=== PATIENT | female | born 1930 | race Caucasian/White ===

== ENCOUNTER 2017-08-23 11:32 | Inpatient (IN) ==
[2017-08-23] MEDS ORDERED: Furosemide 40 MG/4 ML VIAL IVP ONE (11:43)
[2017-08-23] MEDS ORDERED: Nitroglycerin 1 INCH/GM PACKET TP ONE (11:43)
--- NOTE | 2017-08-23 11:47 | Emergency Department Note ---
Disposition Clinical Impression: Congestive heart failure Qualifiers: Congestive heart failure type: systolic Congestive heart failure chronicity: acute Qualified Code(s): I50.21 - Acute systolic (congestive) heart failure Community acquired pneumonia Qualifiers: Laterality: left Lung location: lower lobe of lung Qualified Code(s): J18.1 - Lobar pneumonia, unspecified organism Disposition: Admitted As Inpatient Condition: Good Referrals: Casimiro Hester DO [Primary Care Provider] - Forms: ED Satisfaction Letter Time of Disposition: 14:06 SOB HPI - General Chief Complaint: ED Shortness of Breath/Dyspnea Stated Complaint: SOB/Bilat wheezing Time Seen by Provider: 08/23/17 11:40 Source: patient, EMS Mode of arrival: ambulatory Limitations: no limitations Nursing Notes Reviewed: Yes Vital Signs Reviewed: Yes - History of Present Illness 87-year-old white female states she been more short of breath and usual for the last week. She states she short of breath whether she sitting or lying down. She denies chest pain. She denies cough. No fever. She states she has a history of COPD and congestive heart failure. She is not on home oxygen. Her O2 saturation was 80% in the field. She was given a DuoNeb and 125 mg of Solu- Medrol in route. She denies leg edema. Pt Subjective Complaint: shortness of breath Onset (ago): week(s) (1) Context: other (History of CHF and COPD) Severity: moderate Consistency/Duration: constant Improves with: nothing Worsens with: exertion Known history of: COPD, congestive heart failure Associated symptoms: Reports: denies other symptoms Treatment prior to arrival: oxygen, bronchodilator, other (Solu-Medrol) Cough present: No - Related Data Home oxygen amount: none Home Medications Medication Instructions Recorded Confirmed Aspirin Enteric Coated [Aspirin EC] 81 mg PO DAILY 04/14/15 08/23/17 Furosemide [Lasix] 40 mg PO DAILY 04/14/15 08/23/17 Losartan [Cozaar] 25 mg PO DAILY 04/14/15 08/23/17 Mexiletine [Mexitil] 300 mg PO BID 04/14/15 08/23/17 Oxazepam [Serax] 10 mg PO 1-3XD 04/14/15 08/23/17 Paroxetine [Paxil] 20 mg PO DAILY 04/14/15 08/23/17 Rosuvastatin [Crestor] 20 mg PO HS 04/14/15 08/23/17 Cyanocobalamin (Vitamin B-12) 1,000 mcg PO DAILY 08/23/17 08/23/17 [Vitamin B12] Dexlansoprazole [Dexilant] 60 mg PO DAILY 08/23/17 08/23/17 Ferrous Sulfate [Slow Release Iron] 143 mg PO DAILY 08/23/17 08/23/17 Previous Rx's Medication Instructions Recorded Ranitidine Oral Soln [Ranitidine] 150 mg PO BID #60 mls 04/27/15 Allergies Allergy/AdvReac Type Severity Reaction Status Date / Time Penicillins Allergy Rash Verified 04/14/15 07:51 codeine AdvReac Vomiting Verified 08/23/17 11:34 All systems ED: reviewed and negative except as stated. Constitutional: Denies: fever, chills ENT ED: Denies: ear pain, throat pain Cardiovascular: Denies: chest pain, palpitations Respiratory: Reports: dyspnea, wheezes. 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 Absent: scleral icterus, conjunctival injection - ENT ENT exam: normal oropharynx, mucous membranes moist - Neck Neck exam: Present: normal inspection, full ROM, trachea midline, other ( Positive JVD). Absent: lymphadenopathy - Chest Chest inspection: Present: symmetric chest wall rise - Respiratory Respiratory exam: Present: respiratory distress (Mildly dyspneic), other ( Decreased breath sounds in both bases with bibasilar rales.). Absent: wheezes, stridor, accessory muscle use, prolonged expiratory phase - Cardiovascular Cardiovascular exam: Present: normal rhythm, tachycardia, systolic murmur, diastolic murmur (2/6 systolic/diastolic murmur left sternal border), JVD - Abdominal Exam Abdominal exam: Present: soft, Non-Tender, normal bowel sounds. Absent: organomegaly, mass - Extremities Exam Extremities exam: Present: normal inspection, full ROM, normal capillary refill. Absent: pedal edema, calf tenderness - Neurological Exam Neurological exam: Present: alert, oriented X3. Absent: motor sensory deficit - Psychiatric Psychiatric exam: Present: normal affect, normal mood - Skin Skin exam: Present: diaphoresis. Absent: cyanosis, erythema Course Vital Signs Temperature 98.1 F 08/23/17 11:35 Pulse Rate 122 08/23/17 11:35 Respiratory Rate 22 08/23/17 11:35 Blood Pressure 133/95 08/23/17 11:35 O2 Sat by Pulse Oximetry 96 08/23/17 11:35 Temperature 98.1 F 08/23/17 11:35 Pulse Rate 103 08/23/17 13:26 Respiratory Rate 20 08/23/17 13:26 Blood Pressure 121/83 08/23/17 13:26 O2 Sat by Pulse Oximetry 91 08/23/17 13:26 Oxygen Delivery Oxygen Delivery Nasal Cannula Shortness of Breath/Dyspnea - [facility] Narrative Medical decision making narrative: Clinically I believe she has congestive heart failure. Her exam was consistent with heart failure. Her BNP was elevated. She improved dramatically with IV Lasix and topical nitrates. Her heart rate is now in the 90s. Her O2 saturations in the low 90s on 2 L of oxygen. She clinically feels much better. The chest x-ray showed a questionable pneumonia. I have obtained cultures and covered her with antibiotics. Her lactic acid was mildly elevated, I do not think this represents sepsis and in light of her congestive heart barrier which is improved with diuresis I do not think that it is indicated to give her a fluid bolus to cover for sepsis. I have discussed the case with Dr. Londono. She will be admitted to a observation telemetry bed for further evaluation treatment. - Differential Diagnosis Likely: acute exacerbation of chronic obstructive airways disease, congestive heart failure, pneumonia, pulmonary embolism, pneumothorax, arrhythmia - Medical Records Medical records reviewed: Yes I reviewed the patient's medical records. - Lab Data Lab results reviewed: Yes I reviewed the patient's lab results. Result diagrams: 08/23/17 11:58 08/23/17 11:58 Lab Results 08/23/17 08/23/17 08/23/17 Range/Units 11:58 11:58 11:58 WBC 9.2 (4.3-11.1) K/mcL RBC 4.00 (3.82-4.97) M/mcL Hgb 13.7 (11.5-15.4) g/dL Hct 39.1 (35.3-44.9) % MCV 97.8 (83.0-100.0) fL MCH 34.3 H (28.0-33.3) pg MCHC 35.0 (31.6-35.5) g/dL RDW 15.8 H (11.5-14.5) % Plt Count 318 (140-400) K/mcL MPV 11.3 (9.4-12.4) fL Immature Gran % 0.3 (0-4) % Seg Neutrophils % 75.1 % Lymphocytes % 14.7 % Monocytes % 7.1 % Eosinophils % 1.6 % Basophils % 1.2 % Neutrophils # 6.9 (1.6-8.9) K/mcL Lymphocytes # 1.4 (0.6-4.6) K/mcL Monocytes # 0.7 (0.0-1.3) K/mcL Eosinophils # 0.2 (0.0-0.6) K/mcL Basophils # 0.1 (0.0-0.2) K/mcL PT 12.5 H (9.4-12.1) Seconds INR 1.2 Sodium 137 (136-145) mEq/L Potassium 3.5 (3.5-4.5) mEq/L Chloride 101 (98-109) mEq/L Carbon Dioxide 24 (19-29) mEq/L BUN 25 H (7-20) mg/dL Creatinine 1.29 H (0.57-1.11) mg/dL Est GFR ( Amer) 47 L (> 60) Est GFR (Non-Af Amer) 39 L (> 60) BUN/Creatinine Ratio 19 (6-26) Glucose 174 H (70-99) mg/dL Calculated Osmolality 293 (280-300) Lactic Acid (0.5-2.2) mmol/L Calcium 9.3 (8.6-10.8) mg/dL Total Bilirubin 0.5 (0.2-1.2) mg/dL AST 28 (5-34) Units/L ALT 16 (0-55) Units/L Alkaline Phosphatase 81 (38-126) Units/L Troponin I (0-0.03) ng/mL B-Natriuretic Peptide (0-100) pg/mL Serum Total Protein 7.2 (6.0-8.3) g/dL Albumin 3.8 (3.5-5.0) g/dL Globulin 3.4 (2.4-3.5) g/dL Albumin/Globulin Ratio 1.1 (1.1-2.2) 08/23/17 08/23/17 08/23/17 Range/Units 11:58 11:58 13:08 WBC (4.3-11.1) K/mcL RBC (3.82-4.97) M/mcL Hgb (11.5-15.4) g/dL Hct (35.3-44.9) % MCV (83.0-100.0) fL MCH (28.0-33.3) pg MCHC (31.6-35.5) g/dL RDW (11.5-14.5) % Plt Count (140-400) K/mcL MPV (9.4-12.4) fL Immature Gran % (0-4) % Seg Neutrophils % % Lymphocytes % % Monocytes % % Eosinophils % % Basophils % % Neutrophils # (1.6-8.9) K/mcL Lymphocytes # (0.6-4.6) K/mcL Monocytes # (0.0-1.3) K/mcL Eosinophils # (0.0-0.6) K/mcL Basophils # (0.0-0.2) K/mcL PT (9.4-12.1) Seconds INR Sodium (136-145) mEq/L Potassium (3.5-4.5) mEq/L Chloride (98-109) mEq/L Carbon Dioxide (19-29) mEq/L BUN (7-20) mg/dL Creatinine (0.57-1.11) mg/dL Est GFR ( Amer) (> 60) Est GFR (Non-Af Amer) (> 60) BUN/Creatinine Ratio (6-26) Glucose (70-99) mg/dL Calculated Osmolality (280-300) Lactic Acid 3.2 H (0.5-2.2) mmol/L Calcium (8.6-10.8) mg/dL Total Bilirubin (0.2-1.2) mg/dL AST (5-34) Units/L ALT (0-55) Units/L Alkaline Phosphatase (38-126) Units/L Troponin I 0.02 (0-0.03) ng/mL B-Natriuretic Peptide 917 H (0-100) pg/mL Serum Total Protein (6.0-8.3) g/dL Albumin (3.5-5.0) g/dL Globulin (2.4-3.5) g/dL Albumin/Globulin Ratio (1.1-2.2) - Radiology Data Radiology results reviewed: Yes I reviewed the patient's radiology results. Impressions Chest X-Ray 08/23/17 11:43 IMPRESSION: Right basilar airspace disease, suspicious for pneumonia and small right pleural effusion. D/ / Jasen Mendez MD / Jasen Mendez MD Interpreting Provider: Jasen Mendez MD - EKG Data EKG attestation: Yes I reviewed and interpreted this EKG. EKG results narrative: Sinus tachycardia, rate 120, interventricular conduction delay, right axis deviation. Rhythm strip shows sinus tachycardia with rate of 120, OK interval 130 ms, QRS 133 ms with no other ectopy as interpreted by me.
[2017-08-23 12:05] LABS: Basophils # 0.1 K/mcL (0.0-0.2); Basophils % 1.2 %; Eosinophils # 0.2 K/mcL (0.0-0.6); Eosinophils % 1.6 %; Hematocrit 39.1 % (35.3-44.9); Hemoglobin 13.7 g/dL (11.5-15.4); Immature Granulocytes % 0.3 % (0-4); Lymphocytes # 1.4 K/mcL (0.6-4.6); Lymphocytes % 14.7 %; Mean Corpuscular Hemoglobin 34.3 pg (28.0-33.3); Mean Corpuscular Volume 97.8 fL (83.0-100.0); Mean Platelet Volume 11.3 fL (9.4-12.4); Monocytes # 0.7 K/mcL (0.0-1.3); Monocytes % 7.1 %; Neutrophils # 6.9 K/mcL (1.6-8.9); Platelet Count 318 K/mcL (140-400); Red Cell Distribution Width 15.8 % (11.5-14.5); Segmented Neutrophils % 75.1 %
[2017-08-23 12:13] LABS: INR 1.2; Prothrombin Time 12.5 Seconds (9.4-12.1)
[2017-08-23 12:24] LABS: Albumin 3.8 g/dL (3.5-5.0); Albumin/Globulin Ratio 1.1 (1.1-2.2); Bilirubin,Total 0.5 mg/dL (0.2-1.2); Calcium 9.3 mg/dL (8.6-10.8); Globulin 3.4 g/dL (2.4-3.5); Potassium 3.5 mEq/L (3.5-4.5); Total Protein 7.2 g/dL (6.0-8.3)
[2017-08-23] MEDS ORDERED: Azithromycin 500 MG in D5% in Water 250 ML IVPB ONE (12:36)
[2017-08-23] MEDS ORDERED: Ondansetron 4 MG/2 ML VIAL IVP ONE (12:51)
[2017-08-23] MEDS ORDERED: Naloxone 0.4 MG/ML INJ IVP PRN (14:43)
[2017-08-23] MEDS: *HR* Promethazine 25 MG/ML VIAL IVP PRN (16:26)
[2017-08-23] MEDS ORDERED: Furosemide 40 MG/4 ML VIAL IVP SCH (17:00)
[2017-08-23] MEDS: Acetaminophen 325 MG TABLET PO PRN (19:00)
--- NOTE | 2017-08-23 20:26 | Electrocardiograph Report ---
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
[2017-08-23] MEDS: *HR* HYDROcodone/Acet 5/325 mg TABLET PO PRN (21:02)
[2017-08-23] MEDS: MEXILETINE 150 MG PO SCH (23:14)
[2017-08-24] MEDS ORDERED: Furosemide 40 MG/4 ML VIAL IVP SCH (08:00)
[2017-08-24] MEDS: *HR* HYDROcodone/Acet 5/325 mg TABLET PO PRN ×3 (08:33→19:51)
[2017-08-24] MEDS: Famotidine 20 MG TABLET PO SCH ×2 (08:33→13:03)
[2017-08-24] MEDS: Aspirin Enteric Coated 81 MG Tablet PO SCH (08:34)
[2017-08-24] MEDS: Cyanocobalamin (B-12) 1,000 MCG TABLET PO SCH ×2 (08:34→13:04)
[2017-08-24] MEDS: MEXILETINE 150 MG PO SCH ×2 (08:35→09:06)
[2017-08-24] MEDS: Ondansetron 4 MG/2 ML VIAL IVP PRN ×2 (09:06→15:56)
[2017-08-24] MEDS ORDERED: 0.45 % Sodium Chloride w/KCl 20 MEQ/1,000 ML MLS IVC SCH (12:15)
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
[2017-08-24] MEDS: Isosorbide MONOnitrate (24 HR) 30 MG TAB.ER.24H PO SCH (13:11)
[2017-08-24] MEDS: Azithromycin 500 MG in D5% in Water 250 ML IVPB SCH (19:15)
[2017-08-25] MEDS: *HR* Enoxaparin 30 MG/0.3 ML SYRINGE SQ SCH (06:19)
[2017-08-25 08:24] LABS: Basophils # 0.1 K/mcL (0.0-0.2); Basophils % 0.7 %; Eosinophils # 0.1 K/mcL (0.0-0.6); Eosinophils % 0.9 %; Hemoglobin 11.9 g/dL (11.5-15.4); Immature Granulocytes % 0.4 % (0-4); Lymphocytes # 2.2 K/mcL (0.6-4.6); Lymphocytes % 21.8 %; Mean Platelet Volume 12.4 fL (9.4-12.4); Monocytes # 0.7 K/mcL (0.0-1.3); Monocytes % 6.9 %; Neutrophils # 6.9 K/mcL (1.6-8.9); Platelet Count 249 K/mcL (140-400); Red Cell Distribution Width 16.1 % (11.5-14.5); Segmented Neutrophils % 69.3 %
[2017-08-25 08:34] LABS: Calcium 8.8 mg/dL (8.6-10.8); Magnesium 2.5 mg/dL (1.6-2.6); Potassium 4.5 mEq/L (3.5-4.5)
[2017-08-25 08:58] LABS: Thyroid Stimulating Hormone 1.94 mcIU/mL (0.350-4.840)
[2017-08-25] MEDS: Aspirin Enteric Coated 81 MG Tablet PO SCH (09:34)
[2017-08-25] MEDS: MEXILETINE 150 MG PO SCH ×3 (09:35→20:49)
[2017-08-25] MEDS: Isosorbide MONOnitrate (24 HR) 30 MG TAB.ER.24H PO SCH (09:38)
[2017-08-25] MEDS: *HR* HYDROcodone/Acet 5/325 mg TABLET PO PRN ×2 (09:38→14:54)
[2017-08-25] MEDS: Bumetanide 1 MG TABLET PO SCH (09:45)
[2017-08-25] MEDS: Famotidine 20 MG TABLET PO SCH ×2 (11:09→20:53)
[2017-08-25] MEDS: Cyanocobalamin (B-12) 1,000 MCG TABLET PO SCH (11:09)
[2017-08-25] MEDS: Azithromycin 500 MG in D5% in Water 250 ML IVPB SCH (11:45)
--- NOTE | 2017-08-25 12:10 | Internal Med Progress Note ---
Date of Encounter: 08/25/17 Time of Encounter: 11:55 - Assessment and plan (1) Dyspnea Current Visit: Yes Status: Acute Assessment and plan: August 25. She has decreased LVEF of 40-45%, very severe MR, and pulmonary hypertension. Will increase isosorbide and metoprolol. Qualifiers: Dyspnea type: shortness of breath Qualified Code(s): R06.02 - Shortness of breath; R06.00 - Dyspnea, unspecified; R06.01 - Orthopnea (2) Azotemia Current Visit: Yes Status: Acute Assessment and plan: August 25. We will recheck labs in a.m. (3) Hyperglycemia Current Visit: Yes Status: Acute Assessment and plan: August 25. Hemoglobin A1c is pending - Subjective Interval history: August 25. She has no new complaints. She states her dyspnea has lessened slightly. - Constitutional Vitals: Temp Pulse Resp BP Pulse Ox 97.5 F L 97 18 104/62 98 08/25/17 07:16 08/25/17 07:16 08/25/17 07:16 08/25/17 07:16 08/25/17 07:16 Exam: She is resting comfortably in bed and appears in no acute distress. Her affect is bright and cheerful. Her saturations are 99-100% on bedside monitor. Heart rate is approximately 110. I reviewed her medications and lab results. I reviewed her echocardiogram and chest CT reports with the patient and her family. Internal Medicine: Result - Labs CBC & Chem 7: 08/25/17 07:25 08/25/17 07:25 Labs: Short CBC 08/25/17 Range/Units 07:25 WBC 10.0 (4.3-11.1) K/mcL Hgb 11.9 D (11.5-15.4) g/dL Hct 35.0 L (35.3-44.9) % Plt Count 249 (140-400) K/mcL Neutrophils # 6.9 (1.6-8.9) K/mcL BMP 08/25/17 07:25 Sodium 139 Potassium 4.5 D Chloride 103 Carbon Dioxide 26 BUN 37 H D Creatinine 1.39 H Glucose 102 H Calcium 8.8 - ABG Interpretation ABG results: PT/INR, D-dimer PT 12.5 Seconds (9.4-12.1) H 08/23/17 11:58 - Impressions Impressions Chest CT 08/24/17 19:53 IMPRESSION: 1. Small moderate bilateral pleural effusions, greater on the right, with adjacent airspace disease. Pulmonary edema is considered likely. 2. Bronchial wall thickening with evidence of mucous plugging in the lower lungs. 3. Small hiatal hernia. 4. Moderate motion degradation. D/ / Alfred Meade MD / Alfred Meade MD Interpreting Provider: Alfred Meade MD Consult Discharge Plan - Plan Referrals: Casimiro Hester DO [Primary Care Provider] - 1 week
[2017-08-25] MEDS: Ondansetron 4 MG/2 ML VIAL IVP PRN (12:18)
[2017-08-25] MEDS ORDERED: Isosorbide MONOnitrate (24 HR) 30 MG TAB.ER.24H PO ONE (12:30)
[2017-08-25] MEDS: *HR* Promethazine 25 MG/ML VIAL IVP PRN (13:01)
[2017-08-25 13:23] LABS: Hemoglobin A1C 5.1 %
[2017-08-25] MEDS: *HR* Digoxin 0.125 MG TABLET PO SCH (14:43)
[2017-08-25] MEDS: Acetaminophen 325 MG TABLET PO PRN (20:49)
[2017-08-26] MEDS: *HR* Enoxaparin 30 MG/0.3 ML SYRINGE SQ SCH (06:04)
[2017-08-26 06:45] LABS: Basophils # 0.1 K/mcL (0.0-0.2); Eosinophils # 0.2 K/mcL (0.0-0.6); Eosinophils % 2.4 %; Hematocrit 32.1 % (35.3-44.9); Hemoglobin 10.9 g/dL (11.5-15.4); Immature Granulocytes % 0.3 % (0-4); Lymphocytes # 2.3 K/mcL (0.6-4.6); Lymphocytes % 26.3 %; Mean Corpuscular Hemoglobin 34.2 pg (28.0-33.3); Mean Corpuscular Volume 100.6 fL (83.0-100.0); Mean Platelet Volume 12.4 fL (9.4-12.4); Monocytes # 0.7 K/mcL (0.0-1.3); Monocytes % 8.5 %; Neutrophils # 5.3 K/mcL (1.6-8.9); Platelet Count 227 K/mcL (140-400); Red Blood Count 3.19 M/mcL (3.82-4.97); Red Cell Distribution Width 15.9 % (11.5-14.5); Segmented Neutrophils % 61.5 %
[2017-08-26 07:07] LABS: Calcium 8.7 mg/dL (8.6-10.8); Potassium 3.8 mEq/L (3.5-4.5)
[2017-08-26] MEDS: Bumetanide 1 MG TABLET PO SCH ×2 (09:37→14:28)
[2017-08-26] MEDS: *HR* Digoxin 0.125 MG TABLET PO SCH (09:38)
[2017-08-26] MEDS: Isosorbide MONOnitrate (24 HR) 60 MG TAB.ER.24H PO SCH (09:38)
[2017-08-26] MEDS: Cyanocobalamin (B-12) 1,000 MCG TABLET PO SCH (09:39)
[2017-08-26] MEDS: Aspirin Enteric Coated 81 MG Tablet PO SCH (09:40)
[2017-08-26] MEDS: *HR* HYDROcodone/Acet 5/325 mg TABLET PO PRN (09:40)
[2017-08-26] MEDS: Ondansetron 4 MG/2 ML VIAL IVP PRN (09:41)
[2017-08-26] MEDS: Ondansetron ODT 4 MG TAB.RAPDIS SL PRN (10:13)
[2017-08-26] MEDS: MEXILETINE 150 MG PO SCH ×2 (13:05→21:08)
[2017-08-26] MEDS: Azithromycin 500 MG in D5% in Water 250 ML IVPB SCH (13:08)
--- NOTE | 2017-08-26 13:37 | Internal Med Progress Note ---
Date of Encounter: 08/26/17 Time of Encounter: 13:20 - Assessment and plan (1) Dyspnea Current Visit: Yes Status: Acute Assessment and plan: August 25. She has decreased LVEF of 40-45%, very severe MR, and pulmonary hypertension. Will increase isosorbide and metoprolol. August 26. Will change from metoprolol to Coreg. Will reduce Bumex to every other day because of worsening azotemia. Qualifiers: Dyspnea type: shortness of breath Qualified Code(s): R06.02 - Shortness of breath; R06.00 - Dyspnea, unspecified; R06.01 - Orthopnea (2) Azotemia Current Visit: Yes Status: Acute Assessment and plan: August 25. We will recheck labs in a.m. (3) Hyperglycemia Current Visit: Yes Status: Acute Assessment and plan: August 25. Hemoglobin A1c is pending August 26. Hemoglobin A1c was satisfactory at 5.1%. - Subjective Interval history: August 25. She has no new complaints. She states her dyspnea has lessened slightly. August 26. She states she feels "rough" at times with nausea. She has not had vomiting or diarrhea. She denies pain. - Constitutional Vitals: Temp Pulse Resp BP Pulse Ox 98.3 F 97 18 92/57 99 08/26/17 10:00 08/26/17 10:00 08/26/17 10:00 08/26/17 10:00 08/26/17 10:00 Exam: She is resting comfortably in bed and appears in no acute distress. Her affect is bright and cheerful. Her heart rate and oxygen saturation are acceptable. I reviewed her medications and lab results. Internal Medicine: Result - Labs CBC & Chem 7: 08/26/17 05:06 08/26/17 05:06 Labs: Short CBC 08/26/17 Range/Units 05:06 WBC 8.6 (4.3-11.1) K/mcL Hgb 10.9 L (11.5-15.4) g/dL Hct 32.1 L (35.3-44.9) % Plt Count 227 (140-400) K/mcL Neutrophils # 5.3 (1.6-8.9) K/mcL BMP 08/26/17 05:06 Sodium 138 Potassium 3.8 Chloride 101 Carbon Dioxide 25 BUN 38 H Creatinine 1.18 H Glucose 88 Calcium 8.7 - ABG Interpretation ABG results: PT/INR, D-dimer PT 12.5 Seconds (9.4-12.1) H 08/23/17 11:58 Consult Discharge Plan - Plan Referrals: Casimiro Hester DO [Primary Care Provider] - 1 week
[2017-08-26] MEDS: Potassium Chloride 20 MEQ in D5% in Water 1,000 ML IVC SCH (13:54)
[2017-08-26 19:48] LABS: % Iron Saturation 11 % (15-50); Ferritin 95 ng/ml (10-120); Iron 41 mcg/dL (50-170); Transferrin 276 mg/dL (203-362)
[2017-08-26 20:17] LABS: Folate 21.5 ng/mL (3.0-16.0)
[2017-08-27] MEDS: *HR* HYDROcodone/Acet 5/325 mg TABLET PO PRN ×3 (00:33→21:52)
[2017-08-27] MEDS: Ondansetron ODT 4 MG TAB.RAPDIS SL PRN ×2 (00:33→16:03)
[2017-08-27] MEDS: *HR* Digoxin 0.125 MG TABLET PO SCH (09:00)
[2017-08-27] MEDS: MEXILETINE 150 MG PO SCH ×2 (09:00→20:57)
[2017-08-27] MEDS: Isosorbide MONOnitrate (24 HR) 60 MG TAB.ER.24H PO SCH (09:00)
[2017-08-27] MEDS: Cyanocobalamin (B-12) 1,000 MCG TABLET PO SCH (09:00)
[2017-08-27 10:19] LABS: Calcium 8.9 mg/dL (8.6-10.8); Potassium 4.6 mEq/L (3.5-4.5)
[2017-08-27 10:22] LABS: Basophils # 0.1 K/mcL (0.0-0.2); Basophils % 0.7 %; Eosinophils # 0.2 K/mcL (0.0-0.6); Eosinophils % 1.8 %; Hematocrit 32.5 % (35.3-44.9); Hemoglobin 10.8 g/dL (11.5-15.4); Immature Granulocytes % 0.6 % (0-4); Lymphocytes # 1.1 K/mcL (0.6-4.6); Mean Corpuscular HGB Conc 33.2 g/dL (31.6-35.5); Mean Corpuscular Hemoglobin 33.8 pg (28.0-33.3); Mean Corpuscular Volume 101.6 fL (83.0-100.0); Mean Platelet Volume 12.7 fL (9.4-12.4); Monocytes # 0.5 K/mcL (0.0-1.3); Monocytes % 5.9 %; Platelet Count 213 K/mcL (140-400); Red Cell Distribution Width 15.9 % (11.5-14.5)
--- NOTE | 2017-08-27 10:40 | Internal Med Progress Note ---
Date of Encounter: 08/27/17 Time of Encounter: 10:00 - Assessment and plan (1) Dyspnea Current Visit: Yes Status: Acute Assessment and plan: August 25. She has decreased LVEF of 40-45%, very severe MR, and pulmonary hypertension. Will increase isosorbide and metoprolol. August 26. Will change from metoprolol to Coreg. Will reduce Bumex to every other day because of worsening azotemia. August 27. Continue Bumex, Coreg, Lanoxin, Imdur, and Cozaar. I told her I recommended she be transferred for evaluation by a information technology specialist and/or cardiothoracic surgeon. She declined stating she wanted to think another day about it. Qualifiers: Dyspnea type: shortness of breath Qualified Code(s): R06.02 - Shortness of breath; R06.00 - Dyspnea, unspecified; R06.01 - Orthopnea (2) Azotemia Current Visit: Yes Status: Acute Assessment and plan: August 25. We will recheck labs in a.m. August 27. Creatinine decreased to 1.11 with estimated GFR 46. (3) Hyperglycemia Current Visit: Yes Status: Acute Assessment and plan: August 25. Hemoglobin A1c is pending August 26. Hemoglobin A1c was satisfactory at 5.1%. - Subjective Interval history: August 25. She has no new complaints. She states her dyspnea has lessened slightly. August 26. She states she feels "rough" at times with nausea. She has not had vomiting or diarrhea. She denies pain. August 27. She feels minimally improved. She denies pain. - Constitutional Vitals: Temp Pulse Resp BP Pulse Ox 98.0 F 100 17 104/58 98 08/27/17 06:35 08/27/17 06:35 08/27/17 06:35 08/27/17 06:35 08/27/17 06:35 Exam: She is resting in bed and appears in no acute distress. Her affect is bright and cheerful. I reviewed her medications and lab results. Internal Medicine: Result - Labs CBC & Chem 7: 08/27/17 05:40 08/27/17 05:40 Labs: Short CBC 08/27/17 Range/Units 05:40 WBC 8.8 (4.3-11.1) K/mcL Hgb 10.8 L (11.5-15.4) g/dL Hct 32.5 L (35.3-44.9) % Plt Count 213 (140-400) K/mcL Neutrophils # 7.0 (1.6-8.9) K/mcL BMP 08/27/17 05:40 Sodium 133 L Potassium 4.6 H Chloride 98 Carbon Dioxide 24 BUN 32 H Creatinine 1.11 Glucose 112 H Calcium 8.9 - ABG Interpretation ABG results: PT/INR, D-dimer PT 12.5 Seconds (9.4-12.1) H 08/23/17 11:58 Consult Discharge Plan - Plan Referrals: Casimiro Hester DO [Primary Care Provider] - 1 week
[2017-08-27] MEDS: *HR* Enoxaparin 30 MG/0.3 ML SYRINGE SQ SCH (13:53)
[2017-08-27] MEDS: Potassium Chloride 20 MEQ in D5% in Water 1,000 ML IVC SCH (13:58)
[2017-08-27] MEDS ORDERED: Potassium Chloride 20 MEQ in D5% in Water 1,000 ML IVC SCH (16:45)
[2017-08-27] MEDS ORDERED: ALPRAZolam 0.25 MG TABLET PO PRN (18:58)
[2017-08-28] MEDS: *HR* HYDROcodone/Acet 5/325 mg TABLET PO PRN ×2 (03:09→08:39)
[2017-08-28 05:25] LABS: Basophils # 0.1 K/mcL (0.0-0.2); Basophils % 0.7 %; Hematocrit 33.5 % (35.3-44.9); Immature Granulocytes % 0.5 % (0-4); Lymphocytes # 0.4 K/mcL (0.6-4.6); Lymphocytes % 5.2 %; Mean Corpuscular HGB Conc 32.8 g/dL (31.6-35.5); Mean Corpuscular Hemoglobin 33.7 pg (28.0-33.3); Mean Corpuscular Volume 102.8 fL (83.0-100.0); Mean Platelet Volume 11.9 fL (9.4-12.4); Monocytes # 0.5 K/mcL (0.0-1.3); Monocytes % 7.1 %; Neutrophils # 6.4 K/mcL (1.6-8.9); Nucleated Red Blood Cells 0.3 /100 WBC (0); Platelet Count 180 K/mcL (140-400); Red Blood Count 3.26 M/mcL (3.82-4.97); Red Cell Distribution Width 15.8 % (11.5-14.5); Segmented Neutrophils % 86.5 %
[2017-08-28] MEDS: *HR* Enoxaparin 30 MG/0.3 ML SYRINGE SQ SCH (05:47)
[2017-08-28 05:49] LABS: BUN/Creatinine Ratio 31 (6-26); Blood Urea Nitrogen 26 mg/dL (7-20); Calcium 8.8 mg/dL (8.6-10.8); Carbon Dioxide 15 mEq/L (19-29); Chloride 101 mEq/L (98-109); Glucose 104 mg/dL (70-99); Osmolality,Calculated 277 (280-300); Potassium 5.6 mEq/L (3.5-4.5); Sodium 131 mEq/L (136-145); eGFR For African Americans > 60 (> 60); eGFR For Non-African Americans > 60 (> 60)
[2017-08-28] MEDS: *HR* Digoxin 0.125 MG TABLET PO SCH (08:39)
[2017-08-28] MEDS: Isosorbide MONOnitrate (24 HR) 60 MG TAB.ER.24H PO SCH (08:39)
[2017-08-28] MEDS: MEXILETINE 150 MG PO SCH (08:40)
[2017-08-28] MEDS: Cyanocobalamin (B-12) 1,000 MCG TABLET PO SCH (08:40)
[2017-08-28] MEDS ORDERED: Azithromycin 500 MG in D5% in Water 250 ML IVPB ONE (11:32)
[2017-08-28] MEDS ORDERED: Furosemide 20 MG/2 ML VIAL IVP ONE (11:33)
[2017-08-28] MEDS: Bumetanide 1 MG TABLET PO SCH (13:01)
[2017-08-28] MEDS: Ondansetron ODT 4 MG TAB.RAPDIS SL PRN (14:25)
--- NOTE | 2017-08-28 14:49 | Discharge Summary ---
Date of Encounter: 08/28/17 Time of Encounter: 11:00 - Discharge Diagnosis (1) Mitral regurgitation Priority: Secondary Status: Acute Qualifiers: Cardiac valve disease etiology: nonrheumatic Qualified Code(s): I34.0 - Nonrheumatic mitral (valve) insufficiency (2) Congestive heart failure Priority: Secondary Status: Acute Qualifiers: Congestive heart failure type: systolic Congestive heart failure chronicity : acute Qualified Code(s): I50.21 - Acute systolic (congestive) heart failure (3) Azotemia Priority: Secondary Status: Resolved (4) Hyperglycemia Priority: Secondary Status: Resolved - Discharge Medications Home Medications: Aspirin Enteric Coated [Aspirin EC] 81 mg PO DAILY 04/14/15 [History] Furosemide [Lasix] 40 mg PO DAILY 04/14/15 [History] Losartan [Cozaar] 25 mg PO DAILY 04/14/15 [History] Mexiletine [Mexitil] 300 mg PO BID 04/14/15 [History] Oxazepam [Serax] 10 mg PO TID 04/14/15 [History] Paroxetine [Paxil] 20 mg PO DAILY 04/14/15 [History] Cyanocobalamin (Vitamin B-12) [Vitamin B12] 1,000 mcg PO DAILY 08/23/17 [History ] Dexlansoprazole [Dexilant] 60 mg PO DAILY 08/23/17 [History] Allergies/Adverse Reactions: 3 Allergy/AdvReac Type Severity Reaction Status Date / Time Penicillins Allergy Rash Verified 04/14/15 07:51 codeine AdvReac Vomiting Verified 08/23/17 11:34 Date of admission: 08/24/17 12:26 Primary care physician: Casimiro Hester - Patient Status Disposition: Transfer Other Condition: Good - Discharge Instructions Hospital course: Ms. Boone is a 87 year old female who came to emergency room stating she had increasing dyspnea over the past 2 weeks. She believes onset was 6-12 months ago. She denies chest pain. She was evaluated in emergency room and felt to have exacerbation of heart failure and community acquired pneumonia. She was admitted to [facility] floor for ongoing care needs. Initial orders were written by the emergency room physician. I saw her on August 24 and performed the history and physical. An echocardiogram and chest CT were done to further evaluate. The echocardiogram showed LVEF of 40-45 % with left ventricular end systolic diameter of 5.40 cm. There was severe mitral regurgitation present. She was started on Imdur, Lanoxin, diuretics, Coreg, and Cozaar. She had minimal symptomatic improvement. I encouraged her to be transferred to a [facility] for evaluation for mitral valve repair/ replacement on August 27. She wished to wait until the following day. The following day she was agreeable to be transferred. Contact was made with [facility] and arrangements were completed for her to be transferred there for ongoing care needs. August 28 labwork showed creatinine normalized to 0.84. The BN peptide had risen to 2949. She had left shift on WBC differential with segs 86.5. Serum CO2 was decreased to 15 and potassium had risen to 5.6. She was given a dose of Rocephin and Zithromax prior to transfer to [facility]. - Time Spent with Patient Total time spent providing and/or coordinating discharge services: - Constitutional Vitals: Temp Pulse Resp BP Pulse Ox 97.4 F L 89 18 111/63 99 08/28/17 11:55 08/28/17 11:55 08/28/17 11:55 08/28/17 11:55 08/28/17 11:55
[2017-08-28 14:59] VITALS: BP 98/65
== END 2017-08-28 15:54 | disposition other institution (70) | DRG 291 ==
LOC: INPPIK 11:32 → EMEROOPIK 11:32 → INPPIK 14:48
PROVIDERS: ADMIT Internal Medicine; ATTEND Internal Medicine